=== PATIENT | male | born 1960 | race Caucasian/White ===

== ENCOUNTER 2017-08-01 12:15 | Emergency (ER) | payer MEDICAID ==
[~2017-08-01] VITALS: Ht 170.2 cm; Wt 55.0 kg
[2017-08-01] MEDS ORDERED: IOHEXOL 350 MG/ML 10 ML VIAL (for RAD DIAG) IVCONTRAST ONE (12:16)
[2017-08-01 12:22] VITALS: BP 120/81; PULSE 95; RESP 16; TEMP 98.1; O2SAT 98
--- NOTE | 2017-08-01 12:28 | PD ---
Physical Exam Time Seen by Provider: 12:27 Narrative 57-year-old male with complaint of abdominal pain since this morning. Reports bloody stools 2 today. Takes Plavix. Reports nausea without vomiting. Denies fevers. Patient seen in triage. Vital signs reviewed. Patient taken to medical bed. Data Data Last Documented VS Vital Signs Date Time Temp Pulse Resp B/P (MAP) Pulse Ox O2 Delivery O2 Flow Rate FiO2 08/01/17 12:22 98.1 95 16 120/81 (94) 98 MDM Supervised Visit with TARA: Shwetha Morris Aug 01, 2017 12:28
[2017-08-01] MEDS ORDERED: ASPI81CH CHEW (12:38)
[2017-08-01] MEDS ORDERED: ATOR1TAB18 PO (12:38)
[2017-08-01] MEDS ORDERED: LEVE750T8 PO (12:38)
[2017-08-01] MEDS ORDERED: METO25TA3 PO (12:38)
[2017-08-01] MEDS ORDERED: PLAV75TA29 PO (12:39)
[2017-08-01] MEDS ORDERED: SODIUM CHLORIDE 0.9% FLUSH 10 ML FLUSH IV FLUSH PRN (13:15)
[2017-08-01 13:57] LABS: BASOPHIL # 0.1 TH/MM3 (0-0.2); BASOPHIL % 0.8 % (0.0-2.0); EOSINOPHIL # 0.4 TH/MM3 (0-0.4); EOSINOPHIL % 4.4 % (0.0-4.0); HEMATOCRIT 46.9 % (39.0-51.0); HEMO FLAGS DIFF FINAL; LYMPH % 24.5 % (9.0-44.0); LYMPHOCYTE # 2.3 TH/MM3 (1.0-4.8); MEAN CELL VOLUME 89.8 FL (80.0-100.0); MEAN CORPUSCULAR HEMOGLOBIN 32.2 PG (27.0-34.0); MEAN CORPUSCULAR HGB CONC 35.9 % (32.0-36.0); MONO % 7.6 % (0.0-8.0); NEUT % 62.7 % (16.0-70.0); PLATELET COUNT 248 TH/MM3 (150-450); RED BLOOD COUNT 5.22 MIL/MM3 (4.50-5.90); WHITE BLOOD COUNT 9.5 TH/MM3 (4.0-11.0)
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
[2017-08-01 14:09] LABS: APTT (PATIENT) 36.5 SEC (24.3-30.1); PROTHROMBIN TIME - PATIENT 11.4 SEC (9.8-11.6)
[2017-08-01 14:23] LABS: ALKALINE PHOSPHATASE 134 U/L (45-117); ALT (GPT) 20 U/L (12-78); ANION GAP 7 MEQ/L (5-15); AST (GOT) 19 U/L (15-37); BICARBONATE 26.8 MEQ/L (21.0-32.0); BLOOD UREA NITROGEN 10 MG/DL (7-18); CHLORIDE 97 MEQ/L (98-107); GLOMERULAR FILTRATION RATE 92 ML/MIN (>89); SODIUM (NA) 131 MEQ/L (136-145); TOTAL BILIRUBIN ADULT 0.5 MG/DL (0.2-1.0)
--- NOTE | 2017-08-01 15:30 | RADRPT ---
EXAM DATE/TIME: 08/01/2017 15:05 [place] COMPARISON: No previous studies available for comparison. INDICATIONS : Abdomen pain,nausea,vomiting. IV CONTRAST: 96 cc Omnipaque 350 (iohexol) IV ORAL CONTRAST: No oral contrast ingested. RADIATION DOSE: 4.51 CTDIvol (mGy) MEDICAL HISTORY : Seizures. Chronic obstructive pulmonary disease. Cardiovascular disease SURGICAL HISTORY : None. ENCOUNTER: Initial ACUITY: 1 day PAIN SCALE: 9/10 LOCATION: Abdomen TECHNIQUE: Volumetric scanning of the abdomen and pelvis was performed. Using automated exposure control and ad justment of the mA and/or kV according to patient size, radiation dose was kept as low as reasonably achievable to obtain optimal diagnostic quality images. DICOM format image data is available electro nically for review and comparison. FINDINGS: Lung bases are clear. Liver, gallbladder, kidneys, spleen, pancreas, adrenals, stomach, small bowel, urinary bladder, prostate unremarkable. There is no aneurysm or adenopathy. Atherosclerotic plaquing of the aorta and common iliac, internal iliac arteries identified. Severe atherosclerosis of the left internal iliac artery identified if not completely occluded. There is mild circumferential bowel wal l thickening involving the rectosigmoid colon to the level of the distal descending colon. No adjacen t inflammatory changes are seen. Mild colitis can have this appearance. The osseous structures are in tact. A bone island of the right inferior pubic ramus is noted. CONCLUSION: Mild circumferential bowel wall thickening in rectosigmoid colon may reflect a mild colitis. The parisa l is otherwise unremarkable in appearance. Atherosclerosis and occlusion of the left internal iliac a rtery identified. Marques Ring MD on August 01, 2017 at 15:26 Board Certified Radiologist. This report was verified electronically.
[2017-08-01 16:01] VITALS: O2SAT 95
[2017-08-01] MEDS ORDERED: CIPR-9 PO (16:54)
[2017-08-01] MEDS ORDERED: METR-1 PO (16:54)
[2017-08-01] MEDS ORDERED: CIPROFLOXACIN 500 MG TAB PO ONE (17:00)
[2017-08-01] MEDS ORDERED: metroNIDAZOLE 500 MG TAB PO ONE (17:00)
--- NOTE | 2017-08-01 17:47 | PD ---
Data Data Last Documented VS Vital Signs Date Time Temp Pulse Resp B/P (MAP) Pulse Ox O2 Delivery O2 Flow Rate FiO2 08/01/17 16:01 95 Room Air 08/01/17 12:22 98.1 95 16 Orders Orders Complete Blood Count With Diff (08/01/17 13:15) Comprehensive Metabolic Panel (08/01/17 13:15) Lipase (08/01/17 13:15) Prothrombin Time / Inr (Pt) (08/01/17 13:15) Act Partial Throm Time (Ptt) (08/01/17 13:15) Urinalysis - C+S If Indicated (08/01/17 13:15) Ct Abd/Pel W Iv Contrast(Rout) (08/01/17 13:15) Iv Access Insert/Monitor (08/01/17 13:15) Ecg Monitoring (08/01/17 13:15) Oximetry (08/01/17 13:15) Sodium Chloride 0.9% Flush (Ns Flush) (08/01/17 13:15) Electrocardiogram (08/01/17 12:41) Iohexol 350 Inj (Omnipaque 350 Inj) (08/01/17 12:16) Electrocardiogram (08/01/17 15:35) Ciprofloxacin (Cipro) (08/01/17 17:00) Metronidazole (Flagyl) (08/01/17 17:00) Labs Laboratory Tests Test 08/01/17 12:20 White Blood Count 9.5 TH/MM3 Red Blood Count 5.22 MIL/MM3 Hemoglobin 16.8 GM/DL Hematocrit 46.9 % Mean Corpuscular Volume 89.8 FL Mean Corpuscular Hemoglobin 32.2 PG Mean Corpuscular Hemoglobin Concent 35.9 % Red Cell Distribution Width 15.0 % Platelet Count 248 TH/MM3 Mean Platelet Volume 8.0 FL Neutrophils (%) (Auto) 62.7 % Lymphocytes (%) (Auto) 24.5 % Monocytes (%) (Auto) 7.6 % Eosinophils (%) (Auto) 4.4 % Basophils (%) (Auto) 0.8 % Neutrophils # (Auto) 6.0 TH/MM3 Lymphocytes # (Auto) 2.3 TH/MM3 Monocytes # (Auto) 0.7 TH/MM3 Eosinophils # (Auto) 0.4 TH/MM3 Basophils # (Auto) 0.1 TH/MM3 CBC Comment DIFF FINAL Differential Comment Prothrombin Time 11.4 SEC Prothromb Time International Ratio 1.0 RATIO Activated Partial Thromboplast Time 36.5 SEC Blood Urea Nitrogen 10 MG/DL Creatinine 0.85 MG/DL Random Glucose 78 MG/DL Total Protein 8.7 GM/DL Albumin 4.1 GM/DL Calcium Level 9.5 MG/DL Alkaline Phosphatase 134 U/L Aspartate Amino Transf (AST/SGOT) 19 U/L Alanine Aminotransferase (ALT/SGPT) 20 U/L Total Bilirubin 0.5 MG/DL Sodium Level 131 MEQ/L Potassium Level 4.0 MEQ/L Chloride Level 97 MEQ/L Carbon Dioxide Level 26.8 MEQ/L Anion Gap 7 MEQ/L Estimat Glomerular Filtration Rate 92 ML/MIN Lipase 103 U/L [facility] Medical Record Reviewed: Yes Supervised Visit with TARA: Yes Narrative Course Last 24 hours Impressions Abdomen/Pelvis CT 08/01/17 1315 Signed Impressions: Service Date/Time: Tuesday, August 01, 2017 15:05 - CONCLUSION: Mild circumferential bowel wall thickening in rectosigmoid colon may reflect a mild colitis. The bowel is otherwise unremarkable in appearance. Atherosclerosis and occlusion of the left internal iliac artery identified. Marques Ring MD CBC & BMP Diagram 08/01/17 12:20 Total Protein 8.7 H, Albumin 4.1, Calcium Level 9.5, Alkaline Phosphatase 134 H , Aspartate Amino Transf (AST/SGOT) 19, Alanine Aminotransferase (ALT/SGPT) 20, Total Bilirubin 0.5 I, Dr. Coronel, have reviewed the advance practice practitioner's documentation and am in agreement, met with the patient face to face, made the diagnosis, and the medical decision making was done by me. *My assessment and Findings: Bright red bloody stool x 2 this morning. moderate abdomen pain worse with palpation. no fever. timing resolved. brown quaiac positive stool on exam. dc home with cipo and flagyl. return precautions discussed. follow up with gastroenterology . Diagnosis Primary Impression: Colitis Additional Impressions: Hematochezia Peripheral artery disease Referrals: Talita Tavares MD Primary Care Physician Patient Instructions: General Instructions, Ciprofloxacin (By mouth), Metronidazole (By mouth), Abdominal Pain (ED) Departure Forms: Tests/Procedures Additional Instruction: Follow-up with your gastrointestinal doctor and primary care physician. Avoid alcohol while on Flagyl. Take all antibiotics as prescribed. Scripts Metronidazole (Flagyl) 500 Mg Tab 500 MG PO TID for Infection for 7 Days, #21 TAB 0 Refills Prov: Danette Hernandez 08/01/17 Ciprofloxacin (Cipro) 500 Mg Tab 500 MG PO BID for Infection for 7 Days, #14 TAB 0 Refills Prov: Danette Hernandez 08/01/17 Disposition: 01 DISCHARGE HOME Condition: Stable Ernie Coronel MD Aug 01, 2017 17:46
--- NOTE | 2017-08-02 15:16 | EKG ---
Date Performed: 08/01/2017 Time Performed: 15:35:44 PTAGE: 57 years EKG: Sinus rhythm INDETERMINATE AXIS INCOMPLETE RIGHT BUNDLE BRANCH BLOCK BORDERLINE ECG PREVIOUS TRACING : 08/01/2017 12.41 Compared to prior tracing no significant change DOCTOR: Bettye Carpenter Interpretating Date/Time 08/02/2017 15:15:20
--- NOTE | 2017-08-02 15:37 | EKG ---
Date Performed: 08/01/2017 Time Performed: 12:41:11 PTAGE: 57 years EKG: Sinus rhythm INCOMPLETE RIGHT BUNDLE BRANCH BLOCK BORDERLINE ECG NO PREVIOUS TRACING DOCTOR: Bettye Carpenter Interpretating Date/Time 08/02/2017 15:36:47
== END 2017-08-01 18:03 | disposition home or self-care (01) ==
LOC: NEPC 12:15
DX: K52.9 Noninfective gastroenteritis and colitis, unspecified (principal); K92.1 Melena; I73.9 Peripheral vascular disease, unspecified; I25.10 Atherosclerotic heart disease of native coronary artery without angina pectoris; I45.10 Unspecified right bundle-branch block
CPT/HCPCS: 74177; 80053; 83690; 85025; 85610; 85730; 93005; 99285; Q9967